=== PATIENT | male | born 1995 | race Asian ===

== ENCOUNTER 2017-12-18 16:09 | Emergency (ER) | payer OTHER ==
[~2017-12-18] VITALS: Ht 177.8 cm; Wt 140.6 kg
== END 2017-12-18 17:40 | disposition home or self-care (01) ==
LOC: ED 16:09
DX: Z20.2 Contact with and (suspected) exposure to infections with a predominantly sexual mode of transmission (principal)
CPT/HCPCS: 96372; 99283; J0696